=== PATIENT | male | born 1985 | race Caucasian/White ===

== ENCOUNTER 2017-10-02 08:10 | Emergency (ER) | payer SELFPAY ==
[2017-10-02 08:11] VITALS: BP 144/87; PULSE 87; RESP 18; TEMP 36.5; O2SAT 98; BMI 34.0
--- NOTE | 2017-10-02 08:29 | ED.DCSUM_ITS ---
- ER Visit Summary Date of Service: 10/02/17 Chief Complaint: Abdominal pain History of Present Illness: The patient is a [address] Alvarez. He reports that he has epigastric abdominal pain that radiates into his back. This began approximately 1 month ago and is gradually gotten worse. It is a burning, sharp pain that is 10 out of 10 at worst 9 out of 10 currently. Is worsened by nothing and relieved by laying down. He has had nausea without vomiting. He reports that he is having black diarrhea 1-2 times a day. He denies any bright red blood or maroon colored stools. No dysuria or frequency. States that there is a lump in this region that he noticed approximately a month ago as well. Also states that he has been gassy for approximately the past 2 weeks. Patient reports that he gets heartburn every morning approximately 430. He has been taking Gas-X only for this. Does complain a spicy food intolerance. He denies fatty food intolerance. Physical Examination: Vitals: Stable. Afebrile. General: Well-nourished and well-developed. Head: Normocephalic atraumatic. Neck: Supple, no lymphadenopathy. No JVD. Nontender. Cardiovascular: Regular rate and rhythm. No murmurs. Respiratory: No respiratory distress. Clear to auscultation bilaterally. Abdominal: Soft, mild epigastric tenderness to palpation, nondistended, normal bowel sounds. No guarding, rebound, or peritoneal signs. The lump he is complaining about in his epigastric region is his xiphoid process. Back: Mild tenderness palpation to the mid thoracic spine. Extremities: Nontender, no edema. Skin: Normal color, no rash. Neurologic: Alert and oriented ?3. Cranial nerves II through XII are intact. Normal strength and sensation. Psych: Normal affect. Test Results: CBC is marked for platelets 139. Chem-7 is marked potassium 3.4 chloride 108. LFTs are normal. Lipase is 580. There is no old for comparison. Three-view of the abdomen shows a nonspecific bowel gas pattern. Right upper quadrant ultrasound shows a normal distended gallbladder with wall of 2.8 mm. Negative Genao sign. No fluid. No stones. 2 small polyps. The larger of these 2 is 4 x 3 x 4 mm. Common bile duct is 4.3 mm. Emergency Department Course and Treatment: Patient had an IV placed. He was given Zofran IV. He was given a GI cocktail and Pepcid p.o. he feels improved. Treatment Plan: Patient will be discharged with Zantac and Zofran. Instructed to follow-up with Dr. Alvarez in 1-2 days if not improving. He is instructed to take clear liquids only. At this time I do not have an explanation for his pancreatitis. He denies alcohol use. Return to the emergency department for any worsening symptoms. Disposition: To home in improved and stable condition. Impression: 1. Mild pancreatitis. 2. Gallbladder polyps. This note was generated with [employer] dictation software. It may contain incorrect words, spelling, and punctuation that were not noted in review of the chart prior to signing ED Disposition - Plan for ED Patient: Chief Complaint: Other, Pain/Inj Instructions: ED Pancreatitis Prescriptions: Ondansetron [Zofran Odt] 4 mg PO Q8H PRN PRN #10 tablet PRN Reason: Nausea Ranitidine [Zantac] 300 mg PO DAILY #30 tablet Referrals: Yaa Alvarez MD [Primary Care Provider] - 1-2 Days if not improving
[2017-10-02] MEDS: 0.9% Normal Saline 1,000 ML 1000 ML IV (08:38)
[2017-10-02] MEDS: Ondansetron 4 MG/2 ML Vial IV (08:38)
[2017-10-02 08:42] LABS: Absolute Lymphocyte Count 2.26 X10^3/ul (0.83-4.51); Absolute Neutrophil Count 5.4 X10^3/uL (2.0-7.7); Basophil# 0.02 X10^3/uL; Basophil% 0.2 % (0-1); Eosinophils% 2.4 % (0-5); Hematocrit 43.1 % (40-54); Hemoglobin 15.4 g/dl (13.0-16.5); Lymphocyte # 2.26 X10^3/ul (4.0); Lymphocyte % 26.8 % (19-41); Mean Corp Hgb Conc 35.7 g/gl (32-36); Mean Corpuscular Hgb 31.7 pg (27.0-32.0); Mean Corpuscular Volume 88.7 fL (80-94); Monocyte# 0.58 X10^3/uL; Monocyte% 6.9 % (0-10); Neutrophil # 5.37 X10^3/uL (2.7-7.7); Neutrophil % 63.6 % (47-70); Platelet Count 139 K/mm3 (150-450); RBC Distribution Width CV 12.8 % (11.6-14.6); RBC Distribution Width SD 41.1 fl (35.1-43.9); Red Blood Count 4.86 M/mm3 (4.6-6.2); White Blood Count 8.4 K/mm3 (4.4-11.0)
--- NOTE | 2017-10-02 08:42 | RAD_ITS ---
STUDY: X-RAY - ACUTE ABDOMINAL SERIES REASON FOR EXAM: Male, 32 years old. Abdominal pain. Chronic heartburn. TECHNIQUE: Single view of the chest. Supine, and erect view(s) of the abdomen were obtained. COMPARISON: None. FINDINGS: The lungs are clear and expanded. Scattered calcified granulomas. Normal size heart. Normal mediastinum and corine. Normal visualized pulmonary arteries. Normal visualized aortic arch and descending thoracic aorta. There is a non-specific bowel gas pattern. The soft tissue structures of the abdomen and pelvis are unremarkable. Degenerative changes of the right sacroiliac joint. RAD/Acute Abdomen Inc Chest IMPRESSION: Normal x-ray examination of the chest, abdomen, and pelvis. Degenerative changes of the right sacroiliac joint. Electronically Signed: Genaro Franklin MD at 9:28 EDT Tel [phone], Service support ,
[2017-10-02 08:43] LABS: POSITIVE COUNT NO; POSITIVE DIFFERENTIAL NO; POSITIVE MORPHOLOGY NO
[2017-10-02 08:56] LABS: AST(SGOT) 20 U/L (15-37); Alanine Aminotransfer ALT/SGPT 38 U/L (16-61); Albumin, Serum 4.4 g/dL (3.2-5.0); Alkaline Phosphatase 79 U/L (45-117); Anion Gap 7 (5-15); BUN 11 mg/dL (7-18); BUN/Creat Ratio 13.1 RATIO (10-20); Calcium,Total 8.8 mg/dL (8.5-10.1); Chloride 108 mmol/L (98-107); Creatinine, Serum 0.84 mg/dL (0.70-1.30); EST Glomerular Filtration Rate 111 mL/min (>60); Est Glom Filt Rate - Afr Amer 134 mL/min (>60); Estimated Creatinine Clearance 136.01 ml/min; Globulin 3.2 g/dL (2.2-4.2); Glucose 83 mg/dL (74-106); Lipase 580 U/L (73-393); Potassium 3.4 mmol/L (3.5-5.1); Protein, Total 7.6 g/dL (6.4-8.2); Sodium Level 142 mmol/L (136-145)
--- NOTE | 2017-10-02 09:01 | US_ITS ---
STUDY: ABDOMINAL ULTRASOUND - RIGHT UPPER QUADRANT REASON FOR VISIT: Male, 32 years old. Abnormal liver function tests. Diarrhea. TECHNIQUE: Ultrasound evaluation of the right upper quadrant was performed with real-time and static block-scale imaging. TECHNICAL QUALITY: Adequate. COMPARISON: None. FINDINGS: Liver: The liver is enlarged and measures 20.5 cm. There is increased echogenicity consistent with fatty infiltration. Focal area of fatty sparing is seen in the region of the gallbladder fossa. The bile ducts are within normal limits. There is hepatic color flow. The direction of portal flow is hepatopetal. There is no demonstrated mass lesion. Gallbladder: Normal distended gallbladder. The gallbladder wall measures 2.8 mm. There is a negative sonographic Genao's sign. There is no pericholecystic fluid. There are no gallstones. 2 small polyps are seen adherent to the gallbladder wall. The larger measures 4 mm x 3 mm x 4 mm. Common Bile Duct (C.B.D.): The common bile duct measures 4.3 mm. Pancreas: There is nonvisualization of the pancreas due to overlying bowel gas. Right Kidney: Normal size of the right kidney. The right kidney measures 10.7 cm x 5.7 cm x 4.5 cm. Normal renal cortex. The right cortex measures 1.8 cm. There is no demonstrated renal mass or cyst. There is no right hydronephrosis. US/Gallbladder IMPRESSION: Hepatomegaly and fatty infiltration of the liver. 2. Small gallbladder polyps. Electronically Signed: Genaro Franklin MD at 11:07 EDT Tel [phone], Service support ,
[2017-10-02] MEDS: Famotidine 20 MG Tablet 40 MG PO (09:12)
[2017-10-02 10:31] VITALS: BP 113/65; PULSE 79; RESP 18; O2SAT 100
[2017-10-02 11:29] VITALS: BP 121/67; PULSE 84; RESP 16; O2SAT 100
--- NOTE | 2017-10-02 11:30 | ED.RN ---
THIS NURSE REVIEWED D/C INSTRUCTIONS WITH PT. PT VERBALIZED UNDERSTANDING OF INSTRUCTIONS. IV D/C. IV CATHETER INTACT. PT TOLERATED WELL. PT DENIES FURTHER NEEDS OR QUESTIONS AT THIS TIME. PT AMBULATES FROM ROOM ON OWN WITHOUT ASSISTANCE FROM STAFF
== END 2017-10-02 11:31 | disposition home or self-care (01) ==
PROVIDERS: Emergency Provider Emergency Medicine; Family Provider Internal Medicine; PCP Internal Medicine
DX: K85.90 Acute pancreatitis without necrosis or infection, unspecified (principal); K82.4 Cholesterolosis of gallbladder; F17.200 Nicotine dependence, unspecified, uncomplicated
CPT/HCPCS: 74022; 76705; 80048; 80076; 83690; 85025; 96361; 96374; 99284; J7030; A4216; J2405